=== PATIENT | male | born 1995 | race Caucasian/White ===

== ENCOUNTER 2017-02-09 15:18 | Emergency (ER) | payer OTHER ==
[~2017-02-09] VITALS: Ht 172.7 cm; Wt 83.9 kg
[~2017-02-09 15:18] MED LIST: CEFADROXIL500 M1 PO; MOTRIN800 MG PO
[2017-02-09] MEDS ORDERED: AMOXICILLIN500 M2 PO (15:37)
[2017-02-09] MEDS ORDERED: Peridex 473 ML473 ML PO (15:37)
== END 2017-02-09 15:25 | disposition home or self-care (01) ==
LOC: ED 15:18
DX: K05.10 Chronic gingivitis, plaque induced (principal); K08.89 Other specified disorders of teeth and supporting structures

== ENCOUNTER 2024-02-14 11:10 | Emergency (ER) | payer SELFPAY ==
[~2024-02-14] VITALS: Ht 172.7 cm; Wt 83.9 kg
[~2024-02-14 11:10] MED LIST changes: +AMOXICILLIN500 M2 PO; +Peridex 473 ML473 ML PO
[2024-02-14] MEDS ORDERED: Peridex 473 ML473 ML PO (11:27)
[2024-02-14] MEDS ORDERED: PENICILLIN VK500 MG PO (11:27)
[2024-02-14] MEDS ORDERED: PENICILLIN V POTASSIUM 500 MG TAB PO ONE (11:30)
== END 2024-02-14 11:39 | disposition home or self-care (01) ==
LOC: ED 11:10
DX: R22.9 Localized swelling, mass and lump, unspecified (principal); K08.89 Other specified disorders of teeth and supporting structures; K12.1 Other forms of stomatitis

== ENCOUNTER 2024-09-08 13:54 | Emergency (ER) | payer OTHER ==
[~2024-09-08] VITALS: Ht 172.7 cm; Wt 86.2 kg
[~2024-09-08 13:54] MED LIST changes: +PENICILLIN VK500 MG PO
[2024-09-08] MEDS ORDERED: TAMIFLU 75MG CA75 MG PO (16:18)
== END 2024-09-08 16:25 | disposition home or self-care (01) ==
LOC: ED 13:54
DX: J10.1 Influenza due to other identified influenza virus with other respiratory manifestations (principal); Z20.822 Contact with and (suspected) exposure to COVID-19; Z87.891 Personal history of nicotine dependence